=== PATIENT | male | born 1960 | race Two or more races ===

== ENCOUNTER 2025-06-06 16:37 | Inpatient (IN) | payer MEDICARE, OTHER ==
[~2025-06-06] VITALS: Ht 170.2 cm; Wt 58.5 kg
[2025-06-06 18:00] VITALS: BP 155/82; PULSE 66; RESP 18; TEMP 98.4; O2SAT 98
[2025-06-06] MEDS ORDERED: ACETAMINOPHEN 325 MG TABLET PO PRN (18:30)
[2025-06-06] MEDS ORDERED: BISACODYL 10 MG RECTAL RECTAL SUPPOSITORY PR PRN (18:30)
[2025-06-06] MEDS ORDERED: HEPARIN SODIUM,PORCINE 1,000 UNITS/ML VIAL IVCATH PRN ×4 (18:30→22:00)
[2025-06-06] MEDS: SENNOSIDES 8.6 MG TABLET PO SCH (21:00)
[2025-06-06] MEDS: POLYETHYLENE GLYCOL 3350 17 GM PACKET PO SCH (21:00)
[2025-06-06] MEDS ORDERED: HEPARIN SODIUM,PORCINE 5,000 UNITS/ML VIAL SQ SCH (21:00)
[2025-06-06] MEDS: DOCUSATE SODIUM 250 MG CAPSULE PO SCH (21:00)
[2025-06-06 21:03] VITALS: BP 132/77; PULSE 71; RESP 18; TEMP 98; O2SAT 100
[2025-06-06] MEDS: HEPARIN SODIUM,PORCINE 5,000 UNITS/ML VIAL SQ SCH (21:47)
[2025-06-06] MEDS: ETHYL ALCOHOL 62% ANTISEPTIC NASAL SANITIZER 0.6 ML AMPUL NASAL SCH (21:47)
[2025-06-06] MEDS: MELATONIN 3 MG TABLET PO SCH (21:48)
[2025-06-06] MEDS: ROSUVASTATIN CALCIUM 10 MG TABLET PO SCH (21:49)
[2025-06-06] MEDS: NIFEdipine 60 MG ER TABLET PO SCH (21:50)
[2025-06-06] MEDS: TACROLIMUS 1 MG CAPSULE PO SCH (21:50)
[2025-06-06] MEDS: CLOTRIMAZOLE 1% 15 GM CREAM TP SCH (21:51)
[2025-06-06 23:15] VITALS: BP 144/61; PULSE 61
[2025-06-07] VITALS (9 sets, daily range): BP systolic 98–165; BP diastolic 65–93; PULSE 59–71; RESP 18; TEMP 97.5–97.9; O2SAT 98–100
[2025-06-07] MEDS: ISOSORBIDE DINITRATE 10 MG TABLET PO SCH (06:17)
[2025-06-07 07:56] LABS: PLATELET COUNT (AUTO) 175 K/uL (150-450); RED BLOOD CELL COUNT(AUTO) 3.17 MIL/uL (4.50-5.90); RED CELL DISTRIBUTION WIDTH 17.9 % (11.5-14.5); WHITE BLOOD COUNT (AUTO) 3.9 K/uL (4.5-11.0)
[2025-06-07 08:10] LABS: ASPARTATE AMINOTRANSFERASE 13.0 U/L (15-37); CALCIUM, TOTAL 8.5 mg/dL (8.8-10.5); CREATININE 2.08 mg/dL (0.60-1.30); GLOMERULAR FILTR. RATE CALC 32.0 mL/min (>60); GLUCOSE,RANDOM 82.0 mg/dL (70-110); SODIUM SERUM 137.0 mmol/L (136-145); TOTAL PROTEIN, SERUM 6.0 g/dL (6.4-8.2); UREA NITROGEN, BLOOD 15.0 mg/dL (7-18)
[2025-06-07] MEDS: TAMSULOSIN HCL 0.4 MG CAPSULE PO SCH (08:21)
[2025-06-07] MEDS: ASPIRIN 81 MG CHEWABLE TABLET PO SCH (08:22)
[2025-06-07] MEDS: BUMETANIDE 1 MG TABLET PO SCH (08:22)
[2025-06-07] MEDS: ESCITALOPRAM OXALATE 10 MG TABLET PO SCH (08:23)
[2025-06-07] MEDS: EMPAGLIFLOZIN 10 MG TABLET PO SCH (08:23)
[2025-06-07] MEDS: FINASTERIDE 5 MG TABLET PO SCH (08:24)
[2025-06-07] MEDS: FOLIC ACID/VIT B COMPLEX AND C TABLET PO SCH (08:24)
[2025-06-07] MEDS: EPOETIN ALFA 10,000 UNITS/ML VIAL SQ SCH (10:04)
[2025-06-07] MEDS: INFLUENZA VIRUS VACCINE TVS (6MO+) 2025-26/PF 45 MCG/0.5 ML SYRINGE IM. ONE (13:06)
[2025-06-07] MEDS: PANTOPRAZOLE SODIUM 40 MG DR TABLET PO SCH (14:33)
[2025-06-07] MEDS ORDERED: SODIUM CHLORIDE 0.9% 1,000 ML ONE ×2 (14:55)
[2025-06-07] MEDS: APIXABAN 5 MG TABLET PO SCH (20:27)
[2025-06-07] MEDS: CHLORHEXIDINE GLUCONATE 2% TOWELETTE [2'S/6'S] TP SCH (22:00)
[2025-06-08 07:47] LABS: PLATELET COUNT (AUTO) 154 K/uL (150-450); RED BLOOD CELL COUNT(AUTO) 3.02 MIL/uL (4.50-5.90); RED CELL DISTRIBUTION WIDTH 18.3 % (11.5-14.5); WHITE BLOOD COUNT (AUTO) 3.7 K/uL (4.5-11.0)
[2025-06-08 08:45] VITALS: BP 169/78; PULSE 62; RESP 19; TEMP 98.2; O2SAT 95
[2025-06-08 10:30] VITALS: BP 113/63; PULSE 62
[2025-06-08 12:48] VITALS: BP 132/81; PULSE 70
[2025-06-08 17:00] VITALS: BP 135/80; PULSE 67
[2025-06-08 20:00] VITALS: BP 143/77; PULSE 70; RESP 18; TEMP 98.3; O2SAT 98
[2025-06-09] VITALS (16 sets, daily range): BP systolic 127–190; BP diastolic 69–110; PULSE 60–89; RESP 18; TEMP 97.7–98.6; O2SAT 95–96
[2025-06-09 09:15] LABS: PLATELET COUNT (AUTO) 176 K/uL (150-450); RED BLOOD CELL COUNT(AUTO) 3.50 MIL/uL (4.50-5.90); RED CELL DISTRIBUTION WIDTH 17.7 % (11.5-14.5); WHITE BLOOD COUNT (AUTO) 4.4 K/uL (4.5-11.0)
[2025-06-09] MEDS ORDERED: SODIUM CHLORIDE 0.9% 1,000 ML ONE (10:32)
[2025-06-09] MEDS ORDERED: HEPARIN SODIUM,PORCINE 1,000 UNITS/ML VIAL ONE (12:00)
[2025-06-09] MEDS: HEPARIN SODIUM,PORCINE 1,000 UNITS/ML VIAL IVCATH ONE ×2 (14:34)
[2025-06-10] VITALS (8 sets, daily range): BP systolic 122–167; BP diastolic 79–95; PULSE 62–68; RESP 18; TEMP 97.9–98.4; O2SAT 96–97
[2025-06-10 09:46] LABS: PLATELET COUNT (AUTO) 170 K/uL (150-450); RED BLOOD CELL COUNT(AUTO) 3.44 MIL/uL (4.50-5.90); RED CELL DISTRIBUTION WIDTH 17.4 % (11.5-14.5); WHITE BLOOD COUNT (AUTO) 3.9 K/uL (4.5-11.0)
[2025-06-10 09:59] LABS: ASPARTATE AMINOTRANSFERASE 16.0 U/L (15-37); CALCIUM, TOTAL 8.8 mg/dL (8.8-10.5); CREATININE 2.76 mg/dL (0.60-1.30); GLOMERULAR FILTR. RATE CALC 23.0 mL/min (>60); GLUCOSE,RANDOM 95.0 mg/dL (70-110); SODIUM SERUM 139.0 mmol/L (136-145); TOTAL PROTEIN, SERUM 6.5 g/dL (6.4-8.2); UREA NITROGEN, BLOOD 21.0 mg/dL (7-18)
[2025-06-11 06:25] VITALS: BP 184/99; PULSE 63
[2025-06-11 08:00] VITALS: BP 126/88; PULSE 60; RESP 18; TEMP 97.7; O2SAT 97
[2025-06-11] MEDS ORDERED: HEPARIN SODIUM,PORCINE 1,000 UNITS/ML VIAL ONE (12:00)
[2025-06-11 21:36] VITALS: BP 123/73; PULSE 67; RESP 18; TEMP 98; O2SAT 98
[2025-06-11 21:53] VITALS: BP 123/73; PULSE 88; RESP 18; TEMP 98; O2SAT 98
[2025-06-12] VITALS (10 sets, daily range): BP systolic 125–172; BP diastolic 72–101; PULSE 62–71; RESP 16–19; TEMP 97.7–98.2; O2SAT 96–98
[2025-06-13] VITALS (12 sets, daily range): BP systolic 148–193; BP diastolic 71–103; PULSE 60–70; RESP 16–20; TEMP 97.3–98.3; O2SAT 95–99
[2025-06-13] MEDS: ACETAMINOPHEN 325 MG TABLET PO PRN (08:29)
[2025-06-13] MEDS: APIXABAN 5 MG TABLET PO SCH (09:00)
[2025-06-13] MEDS: LOSARTAN POTASSIUM 25 MG TABLET PO SCH (10:12)
[2025-06-14] VITALS (10 sets, daily range): BP systolic 147–188; BP diastolic 79–106; PULSE 60–80; RESP 18–19; TEMP 97.5–98.2; O2SAT 96–98
[2025-06-14 08:16] LABS: PLATELET COUNT (AUTO) 143 K/uL (150-450); RED BLOOD CELL COUNT(AUTO) 3.28 MIL/uL (4.50-5.90); RED CELL DISTRIBUTION WIDTH 18.1 % (11.5-14.5); WHITE BLOOD COUNT (AUTO) 3.9 K/uL (4.5-11.0)
[2025-06-14 08:29] LABS: CALCIUM, TOTAL 8.5 mg/dL (8.8-10.5); CREATININE 2.42 mg/dL (0.60-1.30); GLOMERULAR FILTR. RATE CALC 27.0 mL/min (>60); GLUCOSE,RANDOM 85.0 mg/dL (70-110); SODIUM SERUM 137.0 mmol/L (136-145); UREA NITROGEN, BLOOD 43.0 mg/dL (7-18)
[2025-06-14] MEDS ORDERED: LOSA-417 PO (10:54)
[2025-06-14] MEDS ORDERED: FINA-27 PO (10:54)
[2025-06-14] MEDS ORDERED: ALLO-97 PO (10:54)
[2025-06-14] MEDS ORDERED: AMLO-258 PO (10:54)
[2025-06-14] MEDS ORDERED: DOCU-412 PO (10:54)
[2025-06-14] MEDS ORDERED: APIX5TAB PO (10:54)
[2025-06-14] MEDS ORDERED: BUME1TAB50 PO (10:54)
[2025-06-14] MEDS ORDERED: ESCI-8 PO (10:54)
[2025-06-14] MEDS ORDERED: FOLI0.8T54 PO (10:54)
[2025-06-14] MEDS ORDERED: ROSU10TA98 PO (10:54)
[2025-06-14] MEDS ORDERED: ISOS10TA16 PO (10:54)
[2025-06-14] MEDS ORDERED: TRAZ-252 PO (10:54)
[2025-06-14] MEDS ORDERED: CARV25 PO (10:54)
[2025-06-14] MEDS ORDERED: TACR1CAP2 PO (10:54)
[2025-06-14] MEDS ORDERED: EMPA10TA3 PO (10:54)
[2025-06-14] MEDS ORDERED: SENN-374 PO (10:54)
[2025-06-14] MEDS ORDERED: TAMS0.4C94 PO (10:54)
[2025-06-14] MEDS ORDERED: HYDR25TA84 PO (10:54)
[2025-06-14] MEDS ORDERED: PANT-31 PO (10:54)
[2025-06-14] MEDS ORDERED: POLY17PO62 PO (10:54)
[2025-06-14] MEDS ORDERED: URSO300C4 PO (10:54)
[2025-06-14] MEDS ORDERED: MYCO250C27 PO (10:54)
[2025-06-14] MEDS ORDERED: HEPARIN SODIUM,PORCINE 1,000 UNITS/ML VIAL ONE (12:00)
[2025-06-14] MEDS ORDERED: SODIUM CHLORIDE 0.9% 1,000 ML ONE ×2 (17:55)
[2025-06-15 03:22] VITALS: BP 171/88; PULSE 64
[2025-06-15 05:36] VITALS: BP 178/92; PULSE 67
[2025-06-15 06:13] VITALS: BP 116/74; PULSE 64
[2025-06-15 08:00] VITALS: BP 129/77; PULSE 65; RESP 19; TEMP 98.6; O2SAT 98
[2025-06-15 10:54] VITALS: BP 165/84; PULSE 62; RESP 18; O2SAT 98
== END 2025-06-15 13:20 | disposition home health service (06) | DRG 291 ==
LOC: 2WR 18:01
PROVIDERS: ADMIT Physical Medicine & Rehabilitation; ATTEND Physical Medicine & Rehabilitation
DX: I13.2 Hypertensive heart and chronic kidney disease with heart failure and with stage 5 chronic kidney disease, or end stage renal disease (principal); I50.31 Acute diastolic (congestive) heart failure; K68.3 Retroperitoneal hematoma; N18.6 End stage renal disease; I82.401 Acute embolism and thrombosis of unspecified deep veins of right lower extremity; I48.92 Unspecified atrial flutter; N17.9 Acute kidney failure, unspecified; G91.9 Hydrocephalus, unspecified; G93.40 Encephalopathy, unspecified; D62 Acute posthemorrhagic anemia; I85.10 Secondary esophageal varices without bleeding; Z74.09 Other reduced mobility; D50.9 Iron deficiency anemia, unspecified; D63.1 Anemia in chronic kidney disease; D69.6 Thrombocytopenia, unspecified; E04.1 Nontoxic single thyroid nodule; E78.5 Hyperlipidemia, unspecified; G47.00 Insomnia, unspecified; G62.9 Polyneuropathy, unspecified; M10.9 Gout, unspecified; K31.819 Angiodysplasia of stomach and duodenum without bleeding; R53.81 Other malaise; R62.7 Adult failure to thrive; N40.0 Benign prostatic hyperplasia without lower urinary tract symptoms; F32.9 Major depressive disorder, single episode, unspecified; G31.84 Mild cognitive impairment of uncertain or unknown etiology; E87.5 Hyperkalemia; I49.5 Sick sinus syndrome; I48.91 Unspecified atrial fibrillation; K74.60 Unspecified cirrhosis of liver; K75.81 Nonalcoholic steatohepatitis (NASH); I25.10 Atherosclerotic heart disease of native coronary artery without angina pectoris; X58.XXXD Exposure to other specified factors, subsequent encounter; Z79.01 Long term (current) use of anticoagulants; Z79.899 Other long term (current) drug therapy; Z82.49 Family history of ischemic heart disease and other diseases of the circulatory system; Z87.440 Personal history of urinary (tract) infections; Z87.891 Personal history of nicotine dependence; Z91.158 Patient's noncompliance with renal dialysis for other reason; Z91.81 History of falling; Z95.0 Presence of cardiac pacemaker; Z95.2 Presence of prosthetic heart valve; Z98.61 Coronary angioplasty status; Z99.2 Dependence on renal dialysis; Z91.013 Allergy to seafood; S50.12XD Contusion of left forearm, subsequent encounter
CPT/HCPCS: 70450; 71045; 80048; 80053; 80197; 82271; 85025; 85610; 86704; 86706; 87081; 87340; 90686; 90935; 92507; 92523; 93970; 97110; 97112; 97116; 97163; 97167; 97530; 97535; 99366; J0885; J1200; J1644; J7030; J7507; J7517; 36415-L1; 36415-TC; G0008